=== PATIENT | female | born 1960 | race American Indian/Alaskan Native ===

== ENCOUNTER 2021-01-15 18:24 | Emergency (ER) | payer MEDICAID ==
[2021-01-15] MEDS ORDERED: KETOROLAC 30 MG/1 ML INJ IM STA (18:48)
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
[2021-01-15 19:10] VITALS: BP 101/59
[2021-01-15] MEDS ORDERED: KETOROLAC 30 MG/1 ML INJ ONE (19:16)
== END 2021-01-15 19:30 | disposition home or self-care (01) ==
LOC: ED 18:24
DX: K08.9 Disorder of teeth and supporting structures, unspecified (principal); G89.29 Other chronic pain; J44.9 Chronic obstructive pulmonary disease, unspecified; Z13.9 Encounter for screening, unspecified; Z76.0 Encounter for issue of repeat prescription; Z79.899 Other long term (current) drug therapy
CPT/HCPCS: 96372; 99283; J1885